=== PATIENT | female | born 1985 | race Caucasian/White ===

== ENCOUNTER 2016-04-16 18:51 | Emergency (ER) | payer OTHER ==
[~2016-04-16] VITALS: Ht 160 cm; Wt 57.5 kg
[2016-04-16 19:20] VITALS: Ht 160 cm; Wt 57.5 kg
[2016-04-16] MEDS ORDERED: LIDOCAINE 1%/EPI (MDV) 20 ML INJ INJ STA (20:37)
[2016-04-16] MEDS ORDERED: HYDR-906 PO (21:16)
--- NOTE | 2016-04-16 21:31 | ERD ---
ER Documentation Chief Complaint Date/Time DATE: 04/16/16 TIME: 21:27 Chief Complaint Abscess on rectum for 3 weeks HPI Patient is a 30-year-old female who presents with an area of redness and swelling to her left upper thigh that she has had for 3 weeks. She states she was seen at a urgent care and they gave her antibiotics as well with it was an abscess with a did not drain it. Pain is 8 out of 10 and got worse within the last day. Denies any fever. Denies any bleeding or drainage. ROS All systems reviewed and are negative except as per history of present illness. Medications Home Meds Active Scripts Hydrocodone/Acetaminophen ([place] 5-325 Tablet) 1 Each Tablet, 1 TAB PO Q6H Y for PAIN, #20 TAB Prov:JOSEF LAND PA-C 04/16/16 Allergies Allergies: Coded Allergies: No Known Allergies (Unverified Allergy, Unknown, 04/16/16) PMhx/Soc Medical and Surgical Hx: pt denies Medical Hx, pt denies Surgical Hx Hx Alcohol Use: Yes (rarely) Hx Substance Use: No Hx Tobacco Use: No Smoking Status: Never smoker FmHx Family History: No diabetes Physical Exam Vitals Vital Signs Date Time Temp Pulse Resp B/P Pulse Ox O2 Delivery O2 Flow Rate FiO2 04/16/16 19:20 99.5 108 18 111/62 99 Physical Exam General: well developed, well nourished, alert, nontoxic, no distress Head: normocephalic, atraumatic Neck: Supple, nontender, no lymphadenopathy, no midline tenderness Respiratory: Clear to auscaultation bilaterally, speaks in full sentences, no use of accesory muscles or labored breathing, no rales, ronchi, or wheezing Cardiovascular: RRR, No murmurs Back: no midline tenderness, no step offs or bony abnormalities, sensation to light touch in tact Extremities: moving all extremities normally, normal gait, no edema Skin: Left upper thigh at the beginning of the gluteal fold there is an area of erythema and induration with fluctuance approximately 4 cm in diameter, no active bleeding or drainage Results 24 hrs Current Medications Medications (Trade) Dose Ordered Sig/Delores Route PRN Reason Start Time Stop Time Status Last Admin Dose Admin Lidocaine/ Epinephrine (Xylocaine 1%/ Epi (Mdv) 20 ml) 20 ml ONCE STAT INJ 04/16/16 20:37 04/16/16 20:39 DC Procedures/MDM 30-year-old presents with abscess. She is already on the appropriate antibiotics. Today incision and drainage was performed. Incision and drainage was performed under direct supervision of female materials management supervisor nurse Julianne. The area was prepped with Betadine and 1% lidocaine was used to anesthetize the area. Small 1 cm to 1-1/2 cm incision was made using an 11 blade and copious amounts of purulent drainage was drained. Patient tolerated the procedure well and there were no complications. Patient was encouraged to continue to take the antibiotics as prescribed and I gave her a prescription for a small amount of [place] for pain control. Recommended this patient follow up with her primary care doctor within 48 hours or return to the emergency room for any worsening of symptoms. However this time I do believe there is suitable for outpatient management. I answered all their questions and they agreed with the plan and were discharged home. Departure Diagnosis: Primary Impression: Abscess Condition: Stable Patient Instructions: Abscess, Incision And Drainage Additional Instructions: Call your primary care doctor TOMORROW for an appointment during the next 1-2 days.See the doctor sooner or return here if your condition worsens before your appointment time. JOSEF LAND PA-C Apr 16, 2016 21:31
[2016-04-16 21:34] VITALS: BP 122/65; PULSE 104; RESP 17; TEMP 98.2
== END 2016-04-16 21:35 | disposition home or self-care (01) ==
LOC: FTE 18:51
DX: L02.416 Cutaneous abscess of left lower limb (principal)